=== PATIENT | female | born 1990 | race Two or more races ===

== ENCOUNTER 2021-08-25 06:45 | Day surgery (SDC) | payer OTHER ==
[~2021-08-25 06:45] MED LIST: TRI PO; [UNRECOGNIZED DRUG - OTHER] PO; [UNRECOGNIZED DRUG - OTHER] PO
[2021-08-25] MEDS ORDERED: PERCOCET 5-3251 EACH PO (10:11)
== END 2021-08-25 14:10 | disposition home or self-care (01) ==
LOC: CIR.AMB 06:45
PROVIDERS: ATTEND Surgery
DX: K81.1 Chronic cholecystitis (principal)